=== PATIENT | male | born 1955 | race Caucasian/White ===

== ENCOUNTER 2019-11-22 13:15 | Emergency (ER) | payer MEDICAID ==
[~2019-11-22] VITALS: Ht 165.1 cm; Wt 69.9 kg
[2019-11-22 13:22] VITALS: BP 138/71
[2019-11-22] MEDS: IBUPROFEN 600 MG TAB PO ONE (14:47)
[2019-11-22] MEDS: MORPHINE SULFATE 4 MG/ML SYR IM ONE (15:10)
[2019-11-22 17:40] VITALS: BP 132/68
== END 2019-11-22 17:36 | disposition home or self-care (01) ==
LOC: MED 13:15
DX: S02.40DA Maxillary fracture, left side, initial encounter for closed fracture (principal); S02.2XXA Fracture of nasal bones, initial encounter for closed fracture; Z98.890 Other specified postprocedural states; Y04.2XXA Assault by strike against or bumped into by another person, initial encounter; Y93.89 Activity, other specified; Y92.89 Other specified places as the place of occurrence of the external cause; Y99.8 Other external cause status
CPT/HCPCS: 70450; 70486; 96372; 99285; J2270